=== PATIENT | female | born 1995 | race Caucasian/White ===

== ENCOUNTER 2020-06-04 09:15 | Outpatient (REF) | payer OTHER, SELFPAY | END 2020-06-04 09:16 | disposition home or self-care (01) | LOC: HO.HMGCLDS 09:15 | PROVIDERS: Visit Provider Internal Medicine | DX: Z20.828 Contact with and (suspected) exposure to other viral communicable diseases (principal) | CPT/HCPCS: C9803; U0003 ==

== ENCOUNTER 2021-04-09 07:17 | Outpatient (REF) | payer OTHER, SELFPAY | END 2021-04-09 07:18 | disposition home or self-care (01) | LOC: HO.LAB 07:17 | PROVIDERS: Visit Provider Internal Medicine | DX: Z20.822 Contact with and (suspected) exposure to COVID-19 (principal) | CPT/HCPCS: C9803; U0003; U0005 ==